=== PATIENT | female | born 1985 | race Caucasian/White ===

== ENCOUNTER 2021-03-03 17:40 | Emergency (ER) | payer OTHER ==
[~2021-03-03] VITALS: Ht 157.5 cm; Wt 86.2 kg
[2021-03-03 17:46] VITALS: BP 158/92
[2021-03-03] MEDS ORDERED: NAPR-1180 PO (18:19)
== END 2021-03-03 18:38 | disposition home or self-care (01) ==
LOC: EDH 17:40
DX: S63.612A Unspecified sprain of right middle finger, initial encounter (principal); Z88.2 Allergy status to sulfonamides; Z91.040 Latex allergy status; Z79.1 Long term (current) use of non-steroidal anti-inflammatories (NSAID); X58.XXXA Exposure to other specified factors, initial encounter; Y93.89 Activity, other specified; Y92.89 Other specified places as the place of occurrence of the external cause; Y99.8 Other external cause status
CPT/HCPCS: 73140